=== PATIENT | female | born 1940 | race Caucasian/White ===

== ENCOUNTER → 2019-12-15 | Outpatient (CLI) | payer OTHER | END | disposition home or self-care (01) | LOC: SHCH 12:51 | PROVIDERS: ATTEND Internal Medicine Cardiovascular Disease | DX: I25.10 Atherosclerotic heart disease of native coronary artery without angina pectoris (principal) | CPT/HCPCS: 93306 ==

== ENCOUNTER → 2020-10-08 | Outpatient (CLI) | payer OTHER | END | disposition home or self-care (01) | LOC: RAH 14:01 | PROVIDERS: ATTEND Internal Medicine Cardiovascular Disease | DX: I73.9 Peripheral vascular disease, unspecified (principal) | CPT/HCPCS: 93925 ==

== ENCOUNTER → 2021-01-07 | Outpatient (CLI) | payer OTHER | END | disposition home or self-care (01) | LOC: SHCH 11:08 | PROVIDERS: ATTEND Internal Medicine Cardiovascular Disease | DX: I87.2 Venous insufficiency (chronic) (peripheral) (principal) | CPT/HCPCS: 93970 ==

== ENCOUNTER → 2021-06-23 | Outpatient (CLI) | payer OTHER | END | disposition home or self-care (01) | LOC: RAH 13:24 | PROVIDERS: ATTEND Internal Medicine Cardiovascular Disease | DX: I82.891 Chronic embolism and thrombosis of other specified veins (principal) | CPT/HCPCS: 93971 ==

== ENCOUNTER → 2021-12-11 | Outpatient (CLI) | payer OTHER | END | disposition home or self-care (01) | LOC: OIH 08:56 | PROVIDERS: ATTEND Family Medicine | DX: I87.2 Venous insufficiency (chronic) (peripheral) (principal) | CPT/HCPCS: 93970 ==

== ENCOUNTER → 2022-04-20 | Outpatient (CLI) | payer OTHER | END | disposition home or self-care (01) | LOC: SHCH 15:14 | PROVIDERS: ATTEND Internal Medicine Cardiovascular Disease | DX: I87.2 Venous insufficiency (chronic) (peripheral) (principal); Z98.890 Other specified postprocedural states | CPT/HCPCS: 93971 ==

== ENCOUNTER → 2022-08-05 | Outpatient (CLI) | payer OTHER | END | disposition home or self-care (01) | LOC: SHCH 10:05 | PROVIDERS: ATTEND Internal Medicine Cardiovascular Disease | DX: I87.2 Venous insufficiency (chronic) (peripheral) (principal) | CPT/HCPCS: 93970 ==

== ENCOUNTER → 2022-09-23 | Outpatient (CLI) | payer OTHER ==
[2022-09-23 12:54] LABS: CHOLESTEROL 107 mg/dL (<200); HDL CHOLESTEROL 49 mg/dL (35-85); LDL DIRECT 39 mg/dL (0-99); TRIGLYCERIDES 130 mg/dL (30-200)
== END | disposition home or self-care (01) ==
LOC: LAB 09:45
PROVIDERS: ATTEND Internal Medicine Cardiovascular Disease
DX: E78.5 Hyperlipidemia, unspecified (principal)
CPT/HCPCS: 36415; 80061

== ENCOUNTER → 2023-09-24 | Outpatient (CLI) | payer OTHER | END | disposition home or self-care (01) | LOC: LAB 10:38 | PROVIDERS: ATTEND Internal Medicine Cardiovascular Disease | DX: I25.10 Atherosclerotic heart disease of native coronary artery without angina pectoris (principal) | CPT/HCPCS: 36415; 83880 ==

== ENCOUNTER → 2023-11-06 | Outpatient (CLI) | payer OTHER | END | disposition home or self-care (01) | LOC: SHCH 12:41 | PROVIDERS: ATTEND Internal Medicine Cardiovascular Disease | DX: I08.0 Rheumatic disorders of both mitral and aortic valves (principal); I87.1 Compression of vein; I87.2 Venous insufficiency (chronic) (peripheral); I21.11 ST elevation (STEMI) myocardial infarction involving right coronary artery; R60.9 Edema, unspecified | CPT/HCPCS: 93306; 93970 ==

== ENCOUNTER → 2023-11-29 | Outpatient (CLI) | payer OTHER ==
[2023-11-29] MEDS: REGADENOSON 0.4 MG/5 ML PF SYG IVP ONE (15:08)
== END | disposition home or self-care (01) ==
LOC: SHCH 09:27
PROVIDERS: ATTEND Internal Medicine Cardiovascular Disease
DX: I21.9 Acute myocardial infarction, unspecified (principal); I25.5 Ischemic cardiomyopathy
CPT/HCPCS: 78452; 93017; J2785; A9500 ×2; 96374

== ENCOUNTER → 2024-06-27 | Outpatient (CLI) | payer OTHER ==
[2024-06-27 16:19] LABS: CREATININE 0.9 mg/dL (0.5-1.0); POTASSIUM 4.7 mmol/L (3.5-5.1)
== END | disposition home or self-care (01) ==
LOC: LAB 13:52
PROVIDERS: ATTEND Internal Medicine Cardiovascular Disease
DX: I25.10 Atherosclerotic heart disease of native coronary artery without angina pectoris (principal)
CPT/HCPCS: 36415; 80048

== ENCOUNTER → 2024-07-04 | Outpatient (CLI) | payer OTHER ==
[~2024-07-04] MED LIST: IOHEXOL 350 MG/ML 100ML INFUS..BTL IV ONE
--- NOTE | 2024-07-04 13:50 | HMCIMG ---
CT CARDIAC ANGIO W/CONT. CCTA HISTORY: Atherosclerotic heart disease COMPARISON: None TECHNIQUE: Multiple sequential axial images of the chest were obtained along with the CT angiogram of the chest study. Patient was given 100 cc of Omnipaque through intravenous route. FINDINGS: There is no evidence of pulmonary nodule or parenchymal disease. No pleural effusion or pericardial effusion is seen. There is no evidence of pneumothorax. There are normal size mediastinal and hilar lymph nodes. The heart is borderline enlarged. Coronary arterial calcifications are seen. Degenerative changes of the thoracolumbar spine are present. IMPRESSION: 1. No evidence of pulmonary nodule or effusion is seen. Please see CT angiogram report of coronary arteries.
== END | disposition home or self-care (01) ==
LOC: RAH 11:20
PROVIDERS: ATTEND Internal Medicine Cardiovascular Disease
DX: I25.10 Atherosclerotic heart disease of native coronary artery without angina pectoris (principal); I21.11 ST elevation (STEMI) myocardial infarction involving right coronary artery; M47.815 Spondylosis without myelopathy or radiculopathy, thoracolumbar region
CPT/HCPCS: 75574; Q9967

== ENCOUNTER 2024-08-11 05:45 | Day surgery (SDC) | payer OTHER ==
[2024-08-09 10:17] VITALS: BP 145/66; PULSE 74; RESP 13; TEMP 97.3
[2024-08-09 10:37] LABS: BASOPHILS # (AUTO) 0.04 K/uL (0.00-0.20); BASOPHILS % (AUTO) 0.5 % (0.0-5.0); EOSINOPHILS # (AUTO) 0.05 K/uL (0.00-0.70); EOSINOPHILS % (AUTO) 0.7 % (0.0-8.0); HEMATOCRIT 37.2 % (36-48); IMMATURE GRANULOCYTE ABSOLUTE 0.03 K/uL (0-1); LYMPHOCYTES # (AUTO) 0.9 K/uL (1.0-4.8); LYMPHOCYTES % (AUTO) 12.5 % (21.0-51.0); MEAN CORPUSCULAR HEMOGLOBIN 29.5 pg (27.0-33.0); MEAN CORPUSCULAR HGB CONC 30.4 g/dL (32.0-36.0); MEAN CORPUSCULAR VOLUME 97.1 fL (79-99); MONOCYTES # (AUTO) 0.5 K/uL (0.1-1.0); MONOCYTES % (AUTO) 7.2 % (3.0-13.0); NEUTROPHILS # (AUTO) 5.8 K/uL (1.8-7.7); NEUTROPHILS % (AUTO) 78.7 % (40.0-77.0); PLATELET COUNT (AUTO) 198 K/uL (130-400); RED BLOOD CELL COUNT(AUTO) 3.83 MIL/uL (4.00-5.50); RED CELL DISTRIBUTION WIDTH 14.4 % (11.0-15.5); WHITE BLOOD COUNT (AUTO) 7.4 K/uL (4.8-10.8)
--- NOTE | 2024-08-09 10:43 | EKG ---
[facility] Test Date: 2024-08-09 Test Time: 11:03:15 Pat Name: HAROON CLAYTON Department: [facility] Room: Gender: F Director Of Rooms: [id number] : 1940 Requested By: GATO RIGGINS Order Number: [id number] Reading MD: Gato Riggins Measurements Intervals [place] Rate: 74 P: 27 NJ: 264 QRS: -68 QRSD: 164 T: 1 QT: 439 QTc: 487 Interpretive Statements Sinus rhythm Prolonged [place] interval Right bundle branch block Left ventricular hypertrophy Anterolateral infarct, old No previous ECG available for comparison INFERIOR INFARCT, OLD Electronically Signed On 08-10-2024 10:26:53 [employer] COORDINATOR by Gato Riggins Please click the below link to view image of tracing.
[2024-08-09 10:48] LABS: CREATININE 0.7 mg/dL (0.5-1.0); POTASSIUM 4.8 mmol/L (3.5-5.1)
[2024-08-09 10:49] LABS: INR <= 0.93 (0.85-1.15)
[2024-08-09 10:50] LABS: PARTIAL THROMBOPLASTIN TIME 25.7 SEC (26.3-35.5)
[2024-08-09 11:07] LABS: B-TYPE NATRIURETIC PEPTIDE 80 pg/mL (0-100)
--- NOTE | 2024-08-09 11:44 | NUR ---
REPORT REPORTED BLISTERS AND REDNESS TO JAVIER LOWER EXTREMITIES TO SHAY ANDERSON NP. OK TO PROCEED
--- NOTE | 2024-08-09 14:47 | HMCIMG ---
PORTABLE CHEST RADIOGRAPH INDICATION: PRE OP COMPARISON: None FINDINGS: Heart is enlarged. The pulmonary vascularity and anna appear normal. No abnormal pulmonary parenchymal opacity or consolidation identified. No significant pleural effusion noted. No pneumothorax detected. IMPRESSION: Cardiomegaly without radiographic evidence for any acute cardiopulmonary process.
[2024-08-11] VITALS (9 sets, daily range): BP systolic 113–133; BP diastolic 50–64; PULSE 62–77; RESP 10–18; TEMP 96.7–97
[~2024-08-11] VITALS: Ht 167.6 cm; Wt 89.8 kg
[~2024-08-11 05:45] MED LIST changes: +ACAR100T2 PO; +ACET-2743 PO; +BIOTIN PO; +CLOP75TA32 PO; +DESL5TAB45 PO; +EMPA25TA PO; +FLUT1BLS15 IH; +FURO20TA4 PO; -IOHEXOL 350 MG/ML 100ML INFUS..BTL IV ONE; +IPRA3AMP24 IH; +ISOS30TA92 PO; +METF-527 PO; +METO-391 PO; +NITR0.4T50 SL; +PHARMACY COMMUNICATION MISC SCH; +ROPI4TAB22 PO; +ROSU40TA88 PO; +SACU1TAB PO; +TIRZ10PE SQ; +VITA1CAP85 PO; +VITAMIN D PO
[2024-08-11] MEDS ORDERED: 0.9%NACL 1000ML 1,000 ML IV ONE (06:06)
[2024-08-11] MEDS: 0.9%NACL 1000ML 1,000 ML IV SCH (06:50)
[2024-08-11 06:56] LABS: ADD UA MICROSCOPIC YES
[2024-08-11 07:01] LABS: APPEARANCE,URINE CLEAR (CLEAR); BILIRUBIN,URINE NEGATIVE (NEGATIVE); COLOR,URINE LIGHT-YELLOW (YELLOW); GLUCOSE, URINE (UA) >=1000 mg/dL (NEGATIVE); KETONES,URINE NEGATIVE (NEGATIVE); LEUKOCYTE ESTERASE ,URINE 500 Leu/uL (NEGATIVE); MUCUS,URINE RARE LPF (None Seen); NITRATE,URINE NEGATIVE (NEGATIVE); NON-SQUAMOUS EPITHELIAL CELL 1 /HPF (0-2); OCCULT BLOOD,URINE NEGATIVE (NEGATIVE); PROTEIN,URINE 10 mg/dL (NEGATIVE); SQUAMOUS EPITHELIAL CELL,UR FEW /HPF (0-2); UROBILINOGEN,URINE 0.2 mg/dL (0.2-1.0); WBC,URINE >100 /HPF (0-1)
--- NOTE | 2024-08-11 08:23 | NUR ---
CONSULT NOTIFIED OF LOWER EXTREMITY BILATERAL REDNESS, AND EDEMA. ASSESSED PATIENT NO ORDERS GIVEN.
[2024-08-11] MEDS ORDERED: IOHEXOL 350 MG/ML 100ML INFUS..BTL IV ONE (12:23)
[2024-08-11] MEDS ORDERED: NITROGLYCERIN 50MG VIAL ONE (12:23)
[2024-08-11] MEDS ORDERED: HEParin-NS 1,000 UNIT/500 ML 1,000 ML IV ONE (12:23)
[2024-08-11] MEDS ORDERED: LIDOCAINE HCL 400MG/20ML VIAL ONE (12:23)
[2024-08-11] MEDS ORDERED: MIDAZOLAM HCL 1 MG/ML 2ML VIAL ONE (12:41)
--- NOTE | 2024-08-11 13:16 | PRN ---
Cath Procedure Report CATH PROCEDURE REPORT CARDIAC CATHETERIZATION REPORT Date of Service: Aug 11, 2024 After informed consent the patient was prepped and draped in usual fashion. She received 1 mg of Versed for conscious sedation. In addition she received 20 cc of xylocaine in the right inguinal area. A six [place] sheath was introduced into the right femoral artery using modified Seldinger technique. As the patient's peripheral IV was infiltrated a five [place] sheath was placed in the right femoral vein using modified Seldinger technique. A Brenda four right six [place] diagnostic catheter was then advanced over guidewire to the aortic root. Wire was removed and catheter engaged into the tangirnaq right coronary artery which was visualized multiple planes. The catheter was removed and a Brenda four left six [place] diagnostic catheter was advanced over guidewire to the aortic root. Wire was removed and catheter engaged into the left main coronary artery. The left coronary system was visualized in multiple planes the catheter was removed. A pigtail catheter was then advanced over guidewire across the aortic valve. Wire was removed and hemodynamics measured. A pullback with continuous hemodynamic monitoring was performed and catheter was removed. A sheathogram was performed and six [place] Angio-Seal closure device applied. The entire procedure was well tolerated. Peripheral IV was placed and the five [place] right femoral venous sheath was removed and manual pressure applied. The patient was then transferred to daycare for postprocedure management. Postprocedure orders have been written. Findings: Right coronary artery is a right-dominant vessel. It is free of obstruction gives rise to normal PDA. Posterolateral artery has a widely patent stent in the proximal portion which was placed in 2018. The left main coronary artery is free of obstruction in the left anterior descending artery extends to the apex of the heart. There was a 50% mid stenosis just after the takeoff of a large branching 1st diagonal artery. The diagonal artery is free of obstruction. The circumflex artery is a nondominant vessel and is free of obstruction gives rise to normal obtuse marginal branches. There was no aortic stenosis. Films reviewed and trial of additional medical management was recommended. Summary: Patent posterolateral stent and 50% mid LAD stenosis just after the takeoff of a large branching diagonal artery. Report dictated by GATO Oro MD, MD Aug 11, 2024 13:16
[2024-08-11] MEDS ORDERED: GLUCAGON 1MG KIT 1 MG ML IM PRN (13:30)
[2024-08-11] MEDS ORDERED: DEXTROSE 50%-WATER 50 ML DISP.SYRIN IV PRN (13:30)
== END 2024-08-11 16:55 | disposition home or self-care (01) ==
LOC: DAH 05:45
PROVIDERS: ATTEND Internal Medicine Cardiovascular Disease
DX: R94.39 Abnormal result of other cardiovascular function study (principal); I25.118 Atherosclerotic heart disease of native coronary artery with other forms of angina pectoris; I13.0 Hypertensive heart and chronic kidney disease with heart failure and stage 1 through stage 4 chronic kidney disease, or unspecified chronic kidney disease; E11.22 Type 2 diabetes mellitus with diabetic chronic kidney disease; N18.9 Chronic kidney disease, unspecified; R06.09 Other forms of dyspnea; R07.89 Other chest pain; R57.0 Cardiogenic shock; E78.5 Hyperlipidemia, unspecified; J44.9 Chronic obstructive pulmonary disease, unspecified; I73.9 Peripheral vascular disease, unspecified; I25.5 Ischemic cardiomyopathy; I51.3 Intracardiac thrombosis, not elsewhere classified; I25.2 Old myocardial infarction; I87.2 Venous insufficiency (chronic) (peripheral); I87.1 Compression of vein; E66.9 Obesity, unspecified; Z79.84 Long term (current) use of oral hypoglycemic drugs; Z79.899 Other long term (current) drug therapy; Z95.828 Presence of other vascular implants and grafts; Z98.890 Other specified postprocedural states; Z88.8 Allergy status to other drugs, medicaments and biological substances; Z68.30 Body mass index [BMI] 30.0-30.9, adult; Z95.5 Presence of coronary angioplasty implant and graft
CPT/HCPCS: 80048; 83880; 85025; 85610; 85730; 36415; 71045; 93005; 93458; 87086; 82948; 81001; A4223 ×3; C1894 ×2; C1760; Q9965; J3490 ×2; J7030; J2250; J1644; Q9967; A4215; A4222; A4221; A4663; A4216; A4606; 99156; 99157

== ENCOUNTER → 2024-09-11 | Outpatient (CLI) | payer OTHER ==
[~2024-09-11] MED LIST changes: -PHARMACY COMMUNICATION MISC SCH
== END | disposition home or self-care (01) ==
LOC: SHCH 08:29
PROVIDERS: ATTEND Internal Medicine Cardiovascular Disease
DX: Z09 Encounter for follow-up examination after completed treatment for conditions other than malignant neoplasm (principal); I87.2 Venous insufficiency (chronic) (peripheral)
CPT/HCPCS: 93971

== ENCOUNTER → 2024-11-06 | Outpatient (CLI) | payer OTHER | END | disposition home or self-care (01) | LOC: SHCH 12:26 | PROVIDERS: ATTEND Internal Medicine Cardiovascular Disease | DX: I87.1 Compression of vein (principal); I87.2 Venous insufficiency (chronic) (peripheral); Z09 Encounter for follow-up examination after completed treatment for conditions other than malignant neoplasm | CPT/HCPCS: 93971 ==